=== PATIENT | female | born 2000 | race Two or more races ===

== ENCOUNTER 2019-02-09 20:41 | Inpatient (IN) | payer OTHER, MEDICAID ==
[~2019-02-09] VITALS: Ht 162.6 cm; Wt 52.6 kg
[2019-02-09] MEDS ORDERED: LIDOCAINE 2%HCL (LOCAL ANESTH.) INJ 20ML MDV ONE (20:52)
[2019-02-09] MEDS: LACTATED RINGER'S 1,000 ML IV SCH (21:31)
[2019-02-09] MEDS ORDERED: WITCH HAZEL-GLYCERIN PAD TOP PRN (21:45)
[2019-02-09] MEDS ORDERED: DERMOPLAST 60ML BOTTLE TOP PRN (21:45)
[2019-02-09] MEDS ORDERED: LIDOCAINE 2%HCL (LOCAL ANESTH.) INJ 20ML MDV ID ONE (21:45)
[2019-02-09] MEDS ORDERED: PHISODERM TOP SOLN 240ML BTL TOP PRN (21:45)
[2019-02-09 21:47] LABS: Basophils # (auto) 0 uL; Basophils % (auto) 0.2 % (0.0-2.0); Eosinophils # (auto) 0 uL; Eosinophils % (auto) 0.2 % (0.0-7.0); Hematocrit 35.9 % (36.0-46.0); Hemoglobin 11.8 g/dL (12.2-16.2); Lymphocytes % (auto) 10.9 % (10.0-50.0); Mean Corpuscular Hemoglobin 30.5 pg (28.0-32.0); Mean Corpuscular Hgb Conc. 32.9 g/dL (32.0-36.0); Mean Corpuscular Volume 92.5 fL (80.0-100.0); Monocytes # (auto) 0.5 uL; Monocytes % (auto) 5.3 % (0.0-12.0); Neutrophils # (auto) 7.3 uL; Neutrophils % (auto) 83.4 % (37.0-80.0); Nucleated Red Blood Cells % 0.1 %; Platelet Count (auto) 128 10^3/uL (140-450); Red Blood Cells 3.88 10^6/uL (4.0-5.20); Red Cell Distribution Width 13.2 % (11.8-14.3); White Blood Cell 8.8 10^3/uL (4.4-10.8)
[2019-02-09 22:03] LABS: Potassium 3.5 mmol/L (3.5-5.1)
[2019-02-09 22:04] LABS: INR 0.91 (0.9-1.15); Partial Thromboplastin Time 30.7 sec (23.78-33.04); Prothrombin Time 9.8 sec (9.27-12.13)
[2019-02-09 22:06] LABS: Albumin 2.6 g/dL (3.4-5.0); Calcium 8.3 mg/dL (8.5-10.1)
[2019-02-09 22:11] LABS: BUN/Creatinine Ratio 9.3; Bilirubin, Total 0.2 mg/dL (0.2-1.0); Total Protein 7.1 g/dL (6.4-8.2)
[2019-02-09] MEDS ORDERED: LACT. RINGERS/OXYTOCIN 20UNITS 500 ML IV ONE (22:19)
[2019-02-09] MEDS: IBUPROFEN 600 MG TAB PO PRN (22:28)
[2019-02-09] MEDS ORDERED: ACETAMINOPHEN 325 MG TAB PO PRN (22:30)
--- NOTE | 2019-02-09 22:46 | NUR ---
Ambulation: Patient OOB with standby assistance by RN. Patient ambulated to bathroom with steady gait. Patient able to void without difficulty. Pericare teaching provided with returned demonstration by patient. Clean gown provided and bed linen changed. Patient ambulated back to bed with steady gait and no distress noted.
[2019-02-09] MEDS ORDERED: LACT. RINGERS/OXYTOCIN 20UNITS 1,000 ML IV SCH (23:19)
[2019-02-10] MEDS: LACTATED RINGER'S 1,000 ML IV SCH (05:31)
[2019-02-10 07:00] VITALS: BP 109/50
[2019-02-10 07:02] LABS: Urine Bacteria FEW /hpf (None Seen); Urine Blood 2+ /uL (Negative); Urine Specific Gravity 1.011 (1.001-1.035); Urine WBC 39 /hpf (0 - 5)
[2019-02-10] MEDS: IBUPROFEN 600 MG TAB PO PRN ×2 (07:20→17:49)
--- NOTE | 2019-02-10 08:00 | NUR ---
Teaching: Reviewed New Beginnings booklet with patient. Discussed different feeding positions, feeding cues, and baby-led feeding. Proper formula preparation instructions from the New Beginning booklet reviewed with patient. All questions and concerns addressed at this time. Patient verbalized understanding of information.
[2019-02-10 09:31] LABS: Alcohol, Urine < 3.0 mg/dL (0-5); Amphetamine Screen, Urine POSITIVE (NEGATIVE); Barbiturate Scree,Urine NEGATIVE (NEGATIVE); Benzodiazephine Screen, Urine NEGATIVE (NEGATIVE); Cannabinoid Screen, Urine NEGATIVE (NEGATIVE); Cocaine Screen, Urine NEGATIVE (NEGATIVE); Opiate Scree,Urine NEGATIVE (NEGATIVE); Phencyclidine Screen, Urine NEGATIVE (NEGATIVE)
--- NOTE | 2019-02-10 11:44 | NUR ---
Pt is an alert and oriented female that states she resides with her 1 1/2 yo son and her Aunt in the area. Pt states she has all resources for the baby to include car seat, clothes, and diapers. Pt states she was working but will be staying home with the baby and that her Aunt will be assisting her with both children. FOB, Richard Londono, present at bedside with pt and . He is involved and supportive. Pt's Aunt is currently taking care of her other son. Pt states she did not have care because she had no transportation down to [place] and just got a new car last week. Informed pt of her positive drug screen for methamphetamines and the baby's positive UDS as well. Pt stated she'd taken pain pills because of back pain. Informed pt that if she should need PNC or followup care for herself or baby that the [facility]([id number] [facility] ) is available for PNC, after care, and baby visits if she is unable to get to her doctor. Educated on importance of medical attention for herself and bay as well as process for reporting positive drug screens. Contacted Hyacinth at [facility] ([phone]) and filed report regarding positive drug screen report#[id number]. Addendum: 02/11/19 at 1159 by CULLEN GRISSOM Amended: Links added.
[2019-02-10 12:00] VITALS: BP 116/74
--- NOTE | 2019-02-10 12:00 | NUR ---
Informed patient that she and infant are both positive for amphetamine on this visit; pt denies using any drugs throughout this with the exception of a "norco" given to her for back pain by a friend earlier this month; pt advised that SS consult has been ordered and CPS case is likely to be opened as a result; pt verbalizes understanding and has no further questions at this time.
--- NOTE | 2019-02-10 14:55 | NUR ---
Victoria from on unit for consult; Victoria states that she will be filing a CPS report on this case.
[2019-02-10 15:10] VITALS: BP 125/65
--- NOTE | 2019-02-10 17:50 | NUR ---
IV removal IV DC'd with sterile technique, catheter fully intact. Pressure dressing applied to site. Patient tolerated procedure well.
[2019-02-10 19:00] VITALS: BP 102/56
[2019-02-10 23:00] VITALS: BP 109/63
--- NOTE | 2019-02-10 23:10 | NUR ---
Heated verbal exchange between pt and FOB, Pt asked that he leave, FOB asked to leave the unit.
--- NOTE | 2019-02-10 23:30 | NUR ---
Pt and FOB argue Pt and FOB arguing. pathology laboratory technologist deescalates situation and FOB leaves [facility] at the request of the pt. Pt is disgruntled with FOJuanito, states he took her phone and progress worker. Pt requests for staff to go to parking lot and retrieve items. Pt informed by this RN that we are unable to retrieve items. Pt assisted to call FOB from phone in room. FOB returns to [facility], pt agrees to allow FOB in room. Pt observed yelling. FOB leaves pt's room after returning items. FOB inquires about visiting NB without seeing the pt. FOB informed that it is at the pt's digression to allow visitation with NB. FOB verbalizes understanding and leaves unit.
[2019-02-11 03:00] VITALS: BP 90/50
[2019-02-11 07:05] LABS: Rubella Antibodies, IgG 2.04 index (Immune >0.99)
[2019-02-11 07:30] VITALS: BP 102/60
[2019-02-11] MEDS: IBUPROFEN 600 MG TAB PO PRN (07:45)
--- NOTE | 2019-02-11 07:53 | NUR ---
SBAR REPORT GIVEN TO DR. ADAMSON. RPR TITER IS 1:16 . NEW ORDERS RECEIVED GIVE PENICILLIN 2.4 MILLION UNITS /IM TX FOR SYPHILIS AND CALL DR. ALICEA . PATIENT STATES SHE WILL COMPLY WITH POC.
[2019-02-11] MEDS ORDERED: PENICILLIN G BENZ 1200000 UNITS/2 ML SYRG IM ONE (08:00)
--- NOTE | 2019-02-11 08:50 | NUR ---
PATIENT AND FOB IN ROOM AND YELLING IS GOING ON. 3 RN'S AT BEDSIDE Ashleigh VARGHESE AND DIRECTOR OF LDRP [facility] AND CALLED AND SHOWED UP . FOB VOLUNTEERED TO LEAVE HOSPITAL AND WALKED OUT.
--- NOTE | 2019-02-11 09:35 | NUR ---
SOCIAL SERVICE VIOLETTA CALLED BACK AND STATES SHE WILL PUT HER NOTES IN AND CFS WAS CALLED AND SHE ALREADY TALKED TO PATIENT . VIOLETTA IS AWARE OF POSITIVE METH ON MOTHER AND BABY AND RPR TITERS IS 1:16 AND INFANT IS 1;8 AND PATIENT DID HAVE LIMITED PNC WITH [facility].
[2019-02-11 11:05] VITALS: BP 92/44
--- NOTE | 2019-02-11 13:00 | NUR ---
PATIENT STATES SHE DOES NOT WANT FAMILY OR FOB TO KNOW ANY THING ABOUT HER HEALTHCARE AND I TALKED TO PATIENT IN PRIVATE ABOUT DRUG ABUSE, SYPHILIS, AND PRINTED OUT ALL DISCHARGE INSTRUCTIONS TO PATIENT. PATIENT IS AWARE OF POC AND NEEDS A SECOND DOSE OF MEDICATION PENICILLIN. ALL QUESTIONS AND CONCERNS ADDRESSED. EDUCATED PATIENT ON SYPHILIS AND THAT SHE NEEDS TO TALK TO HER PARTNER SO HE CAN GET TESTED AND TREATED. PATIENT UNDERSTANDS THAT INFANT IS BEING TRANSFERRED TO A HIGHER LEVEL OF CARE RELATED TO HIGH TITER OF RPR AND DR. VERGARA ALREADY TALKED TO HER ABOUT POC. PATIENT IS COMPLYING WITH POC.
--- NOTE | 2019-02-11 13:30 | NUR ---
Discharge: Discharge instructions given as ordered. Pt encouraged to follow up with GENERAL OFFICE ASSOCIATE as instructed. All questions and concerns addressed. Patient verbalized understanding. Medication reconciliation completed and copy given to patient. Patient refused influenza and d-dap. Patient encouraged to prepare to depart unit. Patient staying with until he is transferred to a higher level of care. Patient states she cant find her id drivers [facility] and asked if anyone found it. Patient also states that she came by ambulance and had id with her at bedside. operator weapon locating radar Hector Sofia aware of lost id and called melt house drag operator Rosey and she states to Hector Sofia call [employer] to have them write up a form for a lost ID. Called Mr. rasheed from [facility] and left a message to return call. Giovanni from [employer] is in nursery and states he will follow up with [employer] and is unable to write a report related to its an ID. Patient states she searched all her belongings and still have not found id.
--- NOTE | 2019-02-11 13:30 | NUR ---
Discharge: No distress noted at time of discharge, no adverse changes in status since initial assessment.Patient is staying after she is discharged until is transferred to a higher level of care.
--- NOTE | 2019-02-11 13:55 | NUR ---
YARED CALLED BACK AND STATES HE HAS NO ID THAT ANYBODY TURNED IN BUT IF ONE IS FOUND IT WILL BE MAILED TO PATIENT.
== END 2019-02-11 13:15 | disposition home or self-care (01) | DRG 806 ==
LOC: LDRP 20:41
PROVIDERS: ADMIT Specialist; ATTEND Specialist
PROC: 10E0XZZ Delivery of Products of Conception, External Approach (ICD-10-PCS; principal; 2019-02-09)
DX: O62.3 Precipitate labor (principal); O98.12 Syphilis complicating childbirth; Z37.0 Single live birth; Z3A.39 39 weeks gestation of pregnancy
CPT/HCPCS: 36415; 59025; 59409; 80053; 80307; 81001; 81002; 85025; 85610; 85730; 86592; 86703; 86762; 86850; 86870; 86900; 86901; 87340; G0378; J0561

== ENCOUNTER 2024-06-24 09:41 | Emergency (ER) | payer MEDICAID, OTHER ==
[~2024-06-24] VITALS: Ht 160 cm; Wt 59.0 kg
[2024-06-24] MEDS: PROCHLORPERAZINE EDISYLATE 5 MG/ML 2ML VIAL IV ONE (10:03)
[2024-06-24] MEDS: SODIUM CHLORIDE 0.9% 1,000 ML IV ONE (10:03)
[2024-06-24] MEDS: PANTOPRAZOLE 40 MG/10 ML VIAL INJ IV ONE (10:03)
[2024-06-24 10:04] VITALS: TEMP 98.4
[2024-06-24 10:06] VITALS: PULSE 88; RESP 20; O2SAT 100
[2024-06-24 10:41] LABS: Basophils # (auto) 0 10 ^3/uL (0-0.2); Basophils % (auto) 0.1 % (0.0-2.0); Eosinophils # (auto) 0.1 10 ^3/uL (0-0.8); Eosinophils % (auto) 1.2 % (0.0-7.0); Hematocrit 40.7 % (36.0-46.0); Hemoglobin 13.6 g/dL (12.2-16.2); Lymphocytes # (auto) 1.2 10 ^3/uL (0.4-5.4); Lymphocytes % (auto) 26.4 % (10.0-50.0); Mean Corpuscular Hemoglobin 29.9 pg (28.0-32.0); Mean Corpuscular Hgb Conc. 33.4 g/dL (32.0-36.0); Mean Corpuscular Volume 89.6 fL (80.0-100.0); Monocytes # (auto) 0.2 10 ^3/uL (0-1.3); Monocytes % (auto) 4.7 % (0.0-12.0); Neutrophils # (auto) 3.1 10 ^3/uL (1.6-8.6); Neutrophils % (auto) 67.6 % (37.0-80.0); Platelet Count (auto) 219 10^3/uL (140-450); Red Blood Cells 4.54 10^6/uL (4.0-5.20); Red Cell Distribution Width 14.1 % (11.8-14.3); White Blood Cell 4.5 10^3/uL (4.4-10.8)
[2024-06-24 11:50] LABS: Urine Bacteria None Seen /hpf (None Seen)
[2024-06-24 12:17] LABS: Urine Blood Negative /uL (Negative); Urine Clarity Clear (Clear); Urine Color Light-Yellow (Yellow); Urine Protein, UAD Negative (Negative); Urine Specific Gravity 1.016 (1.001-1.035); Urine Urobilinogen Normal (Negative); Urine WBC 1 /hpf (0 - 5); Urine pH 6.5 (5.0-9.0)
[2024-06-24 12:18] LABS: Amphetamine Screen, Urine Pos (NEGATIVE); Benzodiazephine Screen, Urine Neg (NEGATIVE)
[2024-06-24 12:19] LABS: Barbiturate Scree,Urine Neg (NEGATIVE); Cannabinoid Screen, Urine Pos (NEGATIVE); Cocaine Screen, Urine Neg (NEGATIVE); Opiate Scree,Urine Neg (NEGATIVE); Phencyclidine Screen, Urine Neg (NEGATIVE)
[2024-06-24 12:57] LABS: Alanine Aminotransferase 19 U/L (7-40); Albumin 4.3 g/dL (3.2-4.8); Alkaline Phosphatase 57 U/L (46-116); Anion Gap 5 (5-15); Aspartate Aminotransferase 23 U/L (13-40); BUN/Creatinine Ratio 7.9 (10.0-20.0); Blood Urea Nitrogen 6 mg/dL (9-23); Calcium 9.3 mg/dL (8.7-10.4); Carbon Dioxide 23 mmol/L (20-30); Chloride 107 mmol/L (98-107); Glucose 100 mg/dL (74-106); Potassium 3.3 mmol/L (3.5-5.1); Sodium 135 mmol/L (136-145)
[2024-06-24 12:58] LABS: Bilirubin, Total 0.6 mg/dL (0.2-1.0); Total Protein 7.5 g/dL (5.7-8.2)
[2024-06-24 13:08] LABS: Lipase 43 U/L (12-53)
[2024-06-24] MEDS ORDERED: PANT40TA2 PO (13:39)
[2024-06-24] MEDS ORDERED: ZOFR4T PO (13:39)
[2024-06-24 13:41] VITALS: BP 132/80; PULSE 55; RESP 13; O2SAT 100
[2024-06-24] MEDS: LORazepam 2MG/ML-1ML VIAL IV ONE (13:53)
== END 2024-06-24 14:23 | disposition home or self-care (01) ==
LOC: ER 09:41 → EDBD 09:41 → ER 14:15
DX: F12.188 Cannabis abuse with other cannabis-induced disorder (principal); F15.10 Other stimulant abuse, uncomplicated; R11.2 Nausea with vomiting, unspecified; T40.415A Adverse effect of fentanyl or fentanyl analogs, initial encounter; Z79.899 Other long term (current) drug therapy; Y92.89 Other specified places as the place of occurrence of the external cause
CPT/HCPCS: 36415; 80053; 80307; 81001; 81025; 83690; 85025; 96361; 96374; 96375; 99284; J0780; J2060; J2470; J7030